=== PATIENT | female | born 1965 | race Caucasian/White ===

== ENCOUNTER 2018-05-16 10:46 | Emergency (ER) | payer MEDICARE, MEDICAID ==
[~2018-05-16] VITALS: Ht 578.2 cm; Wt 115.6 kg
[2018-05-16 10:50] VITALS: BP 144/91
[2018-05-16] MEDS ORDERED: OXYC-150 PO (11:47)
== END 2018-05-16 12:09 | disposition home or self-care (01) ==
LOC: ER 10:47
DX: M25.562 Pain in left knee (principal); I10 Essential (primary) hypertension; Z88.8 Allergy status to other drugs, medicaments and biological substances; Z88.5 Allergy status to narcotic agent
CPT/HCPCS: 99283

== ENCOUNTER 2020-07-29 22:11 | Emergency (ER) | payer BC, MEDICAID ==
[~2020-07-29] VITALS: Ht 165.1 cm; Wt 120.5 kg
[~2020-07-29 22:11] MED LIST: OXYC-150 PO
[2020-07-29 22:18] VITALS: BP 182/97
[2020-07-29] MEDS ORDERED: HYDR-4383 PO (23:21)
== END 2020-07-29 23:40 | disposition home or self-care (01) ==
LOC: ER 22:12
DX: S42.302D Unspecified fracture of shaft of humerus, left arm, subsequent encounter for fracture with routine healing (principal); I10 Essential (primary) hypertension; Z47.89 Encounter for other orthopedic aftercare; Z88.5 Allergy status to narcotic agent; Z88.8 Allergy status to other drugs, medicaments and biological substances; Z79.899 Other long term (current) drug therapy; X58.XXXD Exposure to other specified factors, subsequent encounter
CPT/HCPCS: 99284

== ENCOUNTER 2020-08-21 00:10 | Emergency (ER) | payer BC, MEDICAID ==
[~2020-08-21] VITALS: Ht 165.1 cm; Wt 127.3 kg
[~2020-08-21 00:10] MED LIST changes: +HYDR-4383 PO
[2020-08-21 00:16] VITALS: BP 182/107
== END 2020-08-21 02:59 | disposition home or self-care (01) ==
LOC: ER 00:11
DX: M25.561 Pain in right knee (principal); I10 Essential (primary) hypertension; K21.9 Gastro-esophageal reflux disease without esophagitis; G89.29 Other chronic pain; Z98.890 Other specified postprocedural states; Z88.5 Allergy status to narcotic agent; Z88.8 Allergy status to other drugs, medicaments and biological substances; Z79.899 Other long term (current) drug therapy
CPT/HCPCS: 73560; 99284